=== PATIENT | male | born 1945 | race Caucasian/White ===

== ENCOUNTER → 2020-07-30 14:41 | Outpatient (CLI) | payer OTHER, SELFPAY ==
[2020-07-30 16:19] LABS: Blood Urea Nitrogen 22 mg/dL (9-20); Calcium 9.2 mg/dL (8.4-10.2); Carbon Dioxide 26 mmol/L (22-32); Chloride 102 mmol/L (98-107); Estimated Glomerular Filt Rate > 60.0 mL/min (>60); Glucose 240 mg/dL (80-110); HEMOLYSIS < 15 (0-50); Potassium 4.6 mmol/L (3.4-5.1); Sodium 136 mmol/L (137-145)
== END ==
PROVIDERS: PCP Family Medicine; Referring Provider Specialist; Visit Provider Specialist
DX: R94.4 Abnormal results of kidney function studies (principal)
CPT/HCPCS: 36415; 80048

== ENCOUNTER → 2020-08-02 08:46 | Outpatient (CLI) | payer OTHER, SELFPAY ==
--- NOTE | 2020-08-02 08:48 | DI.NM.S_ITS ---
PROCEDURE: NM BONE SCAN WHOLE BODY RADIOPHARMACEUTICAL: 21.3 mCi Tc-99m MDP IV. INDICATIONS: prostate cancer TECHNIQUE: Delayed whole-body scintigrams were obtained approximately 3-4 hours after intravenous injection of radiotracer. Anterior and posterior views were acquired from vertex to feet. Additional left and right oblique views of the pelvis were obtained. COMPARISON: None. FINDINGS: Foci of increased radiotracer activity are seen in the right lower cervical spine, bilateral acromioclavicular joints, mid to lower lumbar spine, left 1st carpometacarpal joint, and left greater than right knees, which are most likely degenerative in nature. Radiotracer activity in the right maxilla and left mandible may be related to dental disease. No definite scintigraphic evidence of osseous metastatic disease. Normal soft tissue uptake is seen within the kidneys and bladder. IMPRESSION: No scintigraphic evidence of osseous metastatic disease. Multifocal degenerative type radiotracer activity. Recommend correlation with CT chest/abdomen/pelvis performed on the same day. Dictated by: Sundeep Ureña M.D. on 08/02/2020 at 13:54 Approved by: Sundeep Ureña M.D. on 08/02/2020 at 14:01
--- NOTE | 2020-08-02 10:17 | DI.CT.S_ITS ---
PROCEDURE: CT CHEST ABD PEL W CON INDICATIONS: prostate cancer staging TECHNIQUE: After the administration of oral and intravenous contrast, 5 mm thick sections acquired from the lung apices to the symphysis. 5 mm coronal and sagittal reformats were performed, with additional 7 mm coronal MIP reformats through the lungs. For radiation dose reduction, the following was used: automated exposure control, adjustment of mA and/or kV according to patient size. COMPARISON: None. FINDINGS: Image quality: Excellent. CHEST: Lungs and pleura: No acute airspace opacities. No pleural effusions or pneumothorax. Central and peripheral airways appear patent and normal in caliber. Mediastinum: Heart size is normal. No pericardial effusion. No mediastinal or hilar adenopathy by size criteria. Thoracic aorta and central pulmonary arteries are normal in size. Esophagus is normal in caliber. No hiatal hernia. Chest wall: No axillary or supraclavicular adenopathy by size criteria. Thyroid gland appears normal . ABDOMEN: Solid organs: Liver is normal in size and enhancement. Gallbladder appears normal . Biliary system is non dilated. Pancreas enhances normally. Spleen is normal in size and enhancement. No adrenal nodules. Kidneys demonstrate normal size and enhancement, without hydronephrosis. Peritoneum and bowel: Bowel loops demonstrate normal wall thickness and caliber. No free fluid or air. Nodes and vessels: No retroperitoneal or mesenteric adenopathy by size criteria. Aorta and inferior vena cava are normal in size. Miscellaneous: No ventral hernias. Degenerative disc disease is present at the inner curvature is of convex rightward scoliosis at the upper lumbar spine and convex leftward scoliosis at the lower lumbosacral spine. No osteoblastic or lytic change is found. PELVIS: Genitourinary: Bladder wall thickness is normal. The prostate appears normal. Miscellaneous: No inguinal hernias or adenopathy. Bones: No suspicious bony lesions. No vertebral body compression fractures. IMPRESSION: No evidence of metastatic disease related to clinically reported prostate carcinoma. No osteoblastic or lytic low bone lesions are found and the prostate gland itself appears normal. Dictated by: Mingo Staley M.D. on 08/02/2020 at 13:17 Approved by: Mingo Staley M.D. on 08/02/2020 at 13:20
== END ==
PROVIDERS: PCP Family Medicine; Referring Provider Specialist; Visit Provider Specialist
DX: C61 Malignant neoplasm of prostate (principal)
CPT/HCPCS: 71260; 74177; 78306; A9503

== ENCOUNTER → 2020-08-27 15:35 | Outpatient (CLI) | payer OTHER, SELFPAY ==
[2020-08-27 16:06] LABS: Appearance Urine UA CLEAR; Bilirubin Urine UA NEGATIVE (NEGATIVE); Color Urine UA YELLOW; Glucose Urine UA 2+ g/dL (Negative); Ketones Urine UA NEGATIVE (NEGATIVE); Leukocyte Esterase Urine UA NEGATIVE (NEGATIVE); Nitrite Urine UA NEGATIVE (Negative); Occult Blood Urine UA TRACE-INTACT (Negative); Protein Urine UA NEGATIVE (Negative); Urobilinogen Urine UA 0.2 E.U./dL (0.2)
== END ==
PROVIDERS: PCP Family Medicine; Referring Provider Specialist; Visit Provider Specialist
DX: N39.0 Urinary tract infection, site not specified (principal)
CPT/HCPCS: 81003